=== PATIENT | female | born 1980 | race Two or more races ===

== ENCOUNTER 2018-09-21 08:12 | Emergency (ER) | payer OTHER ==
[2018-09-21 08:51] VITALS: BMI 21.9
--- NOTE | 2018-09-21 09:49 | PDOC ---
History of Present Illness - General History Source: Patient - History of Present Illness Timing/Duration: reports: constant <Karel Cadena - Last Filed: 09/21/18 12:40> <Tracie Le - Last Filed: 09/21/18 20:23> - General Chief Complaint: Vaginal Bleeding Stated Complaint: SICK Time Seen by Provider: 09/21/18 09:09 Past History - Past Medical History COPD: No - Surgical History Abdominal Surgery: Yes (tubaligation) - Suicide/Smoking/Psychosocial Hx Smoking History: Never smoked Have you smoked in the past 12 months: No Information on smoking cessation initiated: No Hx Alcohol Use: No Drug/Substance Use Hx: No Substance Use Type: None <Karel Cadena - Last Filed: 09/21/18 12:40> <Tracie Le - Last Filed: 09/21/18 20:23> - Past Medical History Allergies/Adverse Reactions: Allergies Allergy/AdvReac Type Severity Reaction Status Date / Time No Known Allergies Allergy Verified 09/21/18 08:51 Home Medications: Ambulatory Orders NK [No Known Home Medication] 09/21/18 Review of Systems - Review of Systems Constitutional: No: Chills, Fever, Weakness ABD/GI: Yes: Abdominal cramping. No: Nausea, Vomiting : No: Burning, Dysuria, Flank Pain, Hematuria <Karel Cadena - Last Filed: 09/21/18 12:40> *Physical Exam - Vital Signs Last Vital Signs Temp Pulse Resp BP Pulse Ox 98.4 F 67 18 132/73 100 09/21/18 08:48 09/21/18 08:48 09/21/18 08:48 09/21/18 08:48 09/21/18 08:48 - Physical Exam General Appearance: Yes: Appropriately Dressed. No: Apparent Distress HEENT: positive: Normal Voice Neck: positive: Supple Respiratory/Chest: negative: Respiratory Distress Musculoskeletal: negative: CVA Tenderness Integumentary: positive: Dry, Warm Neurologic: positive: Fully Oriented, Alert, Normal Mood/Affect <Karel Cadena - Last Filed: 09/21/18 12:40> - Vital Signs Last Vital Signs Temp Pulse Resp BP Pulse Ox 98.4 F 67 18 132/73 100 09/21/18 08:48 09/21/18 08:48 09/21/18 08:48 09/21/18 08:48 09/21/18 08:48 <Tracie Le - Last Filed: 09/21/18 20:23> Moderate Sedation - Procedure Monitoring Vital Signs: Procedure Monitoring Vital Signs Temperature 98.4 F 09/21/18 08:48 Pulse Rate 67 09/21/18 08:48 Respiratory Rate 18 09/21/18 08:48 Blood Pressure 132/73 09/21/18 08:48 O2 Sat by Pulse Oximetry (%) 100 09/21/18 08:48 <Karel Cadena - Last Filed: 09/21/18 12:40> - Procedure Monitoring Vital Signs: Procedure Monitoring Vital Signs Temperature 98.4 F 09/21/18 08:48 Pulse Rate 67 09/21/18 08:48 Respiratory Rate 18 09/21/18 08:48 Blood Pressure 132/73 09/21/18 08:48 O2 Sat by Pulse Oximetry (%) 100 09/21/18 08:48 <Tracie Le - Last Filed: 09/21/18 20:23> ED Treatment Course - LABORATORY CBC & Chemistry Diagram: 09/21/18 10:07 09/21/18 10:07 - RADIOLOGY Radiology Studies Ordered: Category Date Time Status PELVIS(OTHER) US [US] Stat Ultrasound 09/21/18 09:45 Ordered TRANSVAGINAL ULTRASOUND US [US] Stat Ultrasound 09/21/18 09:45 Ordered <Karel Cadena - Last Filed: 09/21/18 12:40> - LABORATORY CBC & Chemistry Diagram: 09/21/18 10:07 09/21/18 10:07 <Tracie Le - Last Filed: 09/21/18 20:23> Medical Decision Making - Medical Decision Making 09/21/18 09:46 38-year-old female, 0, here with irregular vaginal bleeding. Patient states she was getting normal monthly menses until 2-1/2 months ago when she began bleeding on and off. States bleeding is not heavy, and on her heaviest day uses 2 panty liners. States she is spotting now. Reports that last week she was having sexual intercourse and felt like she had "a mass" in her vaginal area. Also reports intermittent abd cramping. Has since seen her PMD and tested negative for . States M.D. was supposed to arrange an ultrasound for her, but it is taking too long and decided to come to ER today. No weakness, dizziness, n/v See exam DUB Neg preg recently Exam w/ -labs -US 09/21/18 09:49 09/21/18 12:43 Labs and US unremarkable here. Pt stable for dc to f/u with [facility] for further w/ u. Given copy of labs/US <Karel Cadena - Last Filed: 09/21/18 12:40> - Medical Decision Making The patient was seen and evaluated in conjunction with midlevel provider under my direct supervision, ancillary studies were reviewed. I agree with the plan as outlined by OLGA Cadena. HPI as outlined. vitals stable, wnl. labs and lytes normal, H/H wnl. neg preg test TVUS reviewed_unremarkable dispo: DC with [facility] followup for DUB 09/21/18 10:02 09/21/18 11:20 09/21/18 20:23 <Tracie Le - Last Filed: 09/21/18 20:23> *DC/Admit/Observation/Transfer <Karel Cadena - Last Filed: 09/21/18 12:40> <Tracie Le - Last Filed: 09/21/18 20:23> Diagnosis at time of Disposition: DUB (dysfunctional uterine bleeding) - Discharge Dispostion Disposition: HOME Condition at time of disposition: Good - Referrals Referrals: ON STAFF,NOT [Primary Care Provider] - - Patient Instructions Printed Discharge Instructions: DI for Vaginal Bleeding Additional Instructions: La causa de de luna sangrado vaginal irregular no est beitna en lima momento, ya que [facility] y la ecografa fueron normales aqu. Te dieron rudy copia de todos los resultados. Por favor ramses rudy diana para amanda a de luna gineclogo la prxima semana para rudy evaluacin adicional Print Language: [id number] - Post Discharge Activity
[2018-09-21 10:35] LABS: BASO % 0.7 % (0-2.0); EOS % 0.6 % (0-4.5); HEMATOCRIT 44.6 % (32.4-45.2); HEMOGLOBIN 14.5 GM/dL (10.7-15.3); LYMPH % 14.5 % (8-40); MCH 31.2 pg (25.7-33.7); MCHC 32.6 g/dl (32.0-36.0); MEAN CELL VOLUME 95.9 fl (80-96); MEAN PLT VOLUME 8.2 fl (7.5-11.1); MONO % 8.7 % (3.8-10.2); NEUT % 75.5 % (42.8-82.8); PLATELET COUNT 255 K/MM3 (134-434); RBC 4.65 M/mm3 (3.60-5.2); RDW 12.3 % (11.6-15.6)
[2018-09-21 11:07] LABS: ALBUMIN 4.2 g/dl (3.4-5.0); ALK PHOS 63 U/L (45-117); ANION GAP 6 MMOL/L (8-16); BILIRUBIN,TOTAL 0.6 mg/dL (0.2-1); BLOOD UREA NITROGEN 9 mg/dL (7-18); CALCIUM 9.1 mg/dL (8.5-10.1); CHLORIDE 102 mmol/L (98-107); CO2 30 mmol/L (21-32); CREATININE 0.8 mg/dL (0.55-1.3); GLUCOSE,RANDOM 72 mg/dL (74-106); POTASSIUM 3.8 mmol/L (3.5-5.1); SGOT/AST 12 U/L (15-37); SGPT/ALT 19 U/L (13-61); SODIUM 139 mmol/L (136-145); TOT PROT 8.1 g/dl (6.4-8.2)
[2018-09-21 12:16] VITALS: BP 108/70; PULSE 66; TEMP 98.8
== END 2018-09-21 12:50 | disposition home or self-care (01) ==
LOC: JER 08:12
DX: N93.8 Other specified abnormal uterine and vaginal bleeding (principal)
CPT/HCPCS: 36415; 76830-TC; 76856-TC; 80053; 84702; 84703; 85025; 99282-25